=== PATIENT | female | born 1945 | race Caucasian/White ===

== ENCOUNTER → 2016-12-04 | Outpatient (CLI) | payer OTHER | LOC: BHCLAF 15:00 | PROVIDERS: ATTEND Internal Medicine Cardiovascular Disease | DX: I48.0 Paroxysmal atrial fibrillation (principal); I10 Essential (primary) hypertension; E78.5 Hyperlipidemia, unspecified; Z95.5 Presence of coronary angioplasty implant and graft | CPT/HCPCS: 93005-PO ==

== ENCOUNTER 2016-12-30 11:37 | Emergency (ER) | payer OTHER ==
[2016-12-30 11:46] VITALS: RESP 16
--- NOTE | 2016-12-30 12:14 | EDPHY ---
HPI/HX/ROS/PE/MDM Narrative: CHIEF COMPLAINT: Nausea, weakness HPI: The patient is a 71 y/o female complaining of weakness and malaise onset this morning arriving at the referral of her representative government relations for evaluation. She has been dealing with several weeks of diarrhea that stopped four days ago. She describes some black "smaller than a marble-sized" pieces of stool in her diarrhea during that time period that has also resolved. She was active yesterday and felt normal. This morning she woke feeling dizzy, nauseated, and diaphoretic. She denies any vomiting over the last week, fever, or acute pain. She notes she has been taking Aleve for arthritis pain. She has no history of prior GI bleeds. REVIEW OF SYSTEMS: Aside from elements discussed in the HPI, a comprehensive 10-point review of systems was reviewed and is negative. PMH: Chronic right pelvic pain, arthritis, CAD, left circumflex stent, hypertension, hyperlipidemia, paroxysmal atrial fibrillation, AV brain malformation, GI issues, gallbladder issues, ulcer, cervical fusion, Prior medical records reviewed including admission 03/13/14 for cardiac stent and ED note 08/26/14 for tongue bleeding. SOCIAL HISTORY: Family member at bedside. Retired. Lives in [place]. GI: Dr. Seaman PHYSICAL EXAM: General:Patient is alert, in no acute distress. ENT:Eyes are normal to inspection. ENT inspection normal. Neck: Normal inspection. Full range of motion. Respiratory:No respiratory distress. Breath sounds normal bilaterally. Cardiovascular: Regular rate and rhythm. Strong peripheral pulses. Normal cap refill. Abdomen:The abdomen is nontender to palpation. There are no peritoneal signs. There are normal bowel sounds. Back: Normal to inspection. No tenderness to palpation. Skin: Normal color. No rash. Warm and dry. Extremities: Normal appearance. Full range of motion. Neuro: Oriented x3. Normal motor function. Normal sensory function. ED Course: IV established. Labs drawn. UA and stool studies ordered. Patient placed on freight sorter. 4mg IV Zofran and 1L IV NS administered for symptom management. The 12 lead EKG was interpreted by myself. Sinus mechanism. See hard copy and/ or "tracemaster" electronic copy for interpretation. Abdomen CT is negative. Discussed imaging results with the patient. She will be discharged home in good condition with standard follow up instructions and a script for Zofran to use as needed for nausea. Return precautions given. She agrees with follow up instructions. MDM: This patient presents with generalied weakness and report of possible small chunks of black material in her stool. Her abdomen is benign. Her Hct is normal. Her vitals are normal. Her CTAP is normal, so I think serious GI bleed , bowel obstruction, bowel perforation, sepsis are all unlikely. I discussed findings with her and she would like to go home. We discussed strict return precautions. - Data Points Imaging: Discussed imaging studies w/ produce weigher Radiologist, I viewed and interpreted images myself Laboratory Results: Laboratory Results 12/30/16 12:23 12/30/16 12:23 12/30/16 12/30/16 12/30/16 13:30 12:23 12:23 WBC RBC Hgb Hct MCV MCH MCHC RDW Plt Count MPV Neut % (Auto) Lymph % (Auto) Da[place]hin % (Auto) Eos % (Auto) Baso % (Auto) Nucleat RBC Rel Count Absolute Neuts (auto) Absolute Lymphs (auto) Absolute Monos (auto) Absolute Eos (auto) Absolute Basos (auto) Absolute Nucleated RBC Immature Gran % Immature Gran # PT 12.7 SEC SEC (12.0-15.0) INR 0.96 (0.83-1.16) APTT 44.1 SEC H SEC (23.0-38.0) Sodium 140 mEq/L mEq/L (134-144) Potassium 4.5 mEq/L mEq/L (3.5-5.2) Chloride 107 mEq/L mEq/L (97-110) Carbon Dioxide 22 mEq/l mEq/l (22-31) Anion Gap 11 mEq/L mEq/L (8-16) BUN 18 mg/dL mg/dL (7-23) Creatinine 0.9 mg/dL mg/dL (0.6-1.0) Estimated GFR > 60 Glucose 89 mg/dL mg/dL (70-100) Calcium 8.8 mg/dL mg/dL (8.5-10.4) Total Bilirubin 0.4 mg/dL mg/dL (0.1-1.4) Conjugated Bilirubin 0.3 mg/dL mg/dL (0.0-0.5) Unconjugated Bilirubin 0.1 mg/dL mg/dL (0.0-1.1) AST 15 IU/L IU/L (14-46) ALT 25 IU/L IU/L (9-52) Alkaline Phosphatase 75 IU/L IU/L (38-126) Total Protein 6.6 g/dL g/dL (6.3-8.2) Albumin 3.8 g/dL g/dL (3.5-5.0) Urine Color PALE YELLOW Urine Appearance CLEAR Urine pH 5.0 (5.0-7.5) Ur Specific Armstrong 1.005 (1.002-1.030) Urine Protein NEGATIVE (NEGATIVE) Urine Ketones NEGATIVE (NEGATIVE) Urine Blood 1+ H (NEGATIVE) Urine Nitrate NEGATIVE (NEGATIVE) Urine Bilirubin NEGATIVE (NEGATIVE) Urine Urobilinogen NEGATIVE EU EU (0.2-1.0) Ur Leukocyte Esterase NEGATIVE (NEGATIVE) Urine RBC NONE SEEN /hpf /hpf (0-3) Urine WBC NONE SEEN /hpf /hpf (0-3) Ur Epithelial Cells NONE SEEN /lpf /lpf (NONE-1+) Urine Bacteria TRACE /hpf H /hpf (NONE SEEN) Urine Mucus TRACE /lpf /lpf (NONE-1+) Urine Glucose NEGATIVE (NEGATIVE) 12/30/16 12:23 WBC 7.50 10^3/uL 10^3/uL (3.80-9.50) RBC 4.26 10^6/uL 10^6/uL (4.18-5.33) Hgb 14.2 g/dL g/dL (12.6-16.3) Hct 41.5 % % (38.0-47.0) MCV 97.4 fL fL (81.5-99.8) MCH 33.3 pg pg (27.9-34.1) MCHC 34.2 g/dL g/dL (32.4-36.7) RDW 13.0 % % (11.5-15.2) Plt Count 273 10^3/uL 10^3/uL (150-400) MPV 9.7 fL fL (8.7-11.7) Neut % (Auto) 70.4 % % (39.3-74.2) Lymph % (Auto) 17.3 % % (15.0-45.0) Dauphin % (Auto) 6.5 % % (4.5-13.0) Eos % (Auto) 4.5 % % (0.6-7.6) Baso % (Auto) 0.9 % % (0.3-1.7) Nucleat RBC Rel Count 0.0 % % (0.0-0.2) Absolute Neuts (auto) 5.27 10^3/uL 10^3/uL (1.70-6.50) Absolute Lymphs (auto) 1.30 10^3/uL 10^3/uL (1.00-3.00) Absolute Monos (auto) 0.49 10^3/uL 10^3/uL (0.30-0.80) Absolute Eos (auto) 0.34 10^3/uL 10^3/uL (0.03-0.40) Absolute Basos (auto) 0.07 10^3/uL 10^3/uL (0.02-0.10) Absolute Nucleated RBC 0.00 10^3/uL 10^3/uL (0-0.01) Immature Gran % 0.4 % % (0.0-1.1) Immature Gran # 0.03 10^3/uL 10^3/uL (0.00-0.10) PT INR APTT Sodium Potassium Chloride Carbon Dioxide Anion Gap BUN Creatinine Estimated GFR Glucose Calcium Total Bilirubin Conjugated Bilirubin Unconjugated Bilirubin AST ALT Alkaline Phosphatase Total Protein Albumin Urine Color Urine Appearance Urine pH Ur Specific Armstrong Urine Protein Urine Ketones Urine Blood Urine Nitrate Urine Bilirubin Urine Urobilinogen Ur Leukocyte Esterase Urine RBC Urine WBC Ur Epithelial Cells Urine Bacteria Urine Mucus Urine Glucose Medications Given: Discontinued Medications Sodium Chloride (Ns) 1,000 mls @ 0 mls/hr IV ONCE ONE PRN Reason: Wide Open Stop: 12/30/16 12:27 Last Admin: 12/30/16 12:30 Dose: 1,000 mls Ondansetron HCl (Zofran) 4 mg IVP EDNOW ONE Stop: 12/30/16 12:27 Last Admin: 12/30/16 12:30 Dose: 4 mg General Time Seen by Provider: 12/30/16 11:53 Initial Vital Signs: Initial Vital Signs Temperature (C) 37.6 C 12/30/16 11:43 Heart Rate 73 12/30/16 11:43 Respiratory Rate 16 12/30/16 11:43 Blood Pressure 140/88 H 12/30/16 11:43 O2 Sat (%) 95 12/30/16 11:43 O2 Delivery Mode Room Air Allergies/Adverse Reactions: diphenhydramine HCl [From Benadryl] Allergy (Severe, Verified 12/30/16 11:40) SWOLLEN TONGUE/DRUG FEVER/TROUBLE SWOLLOWING Penicillins Allergy (Severe, Verified 12/30/16 11:40) SWOLLEN TONGUE/DRUG FEVER/TROUBLE SWOLLOWING lidocaine Allergy (Intermediate, Verified 12/30/16 11:40) Hives Tvyctle-Qnm-Bwn Reductase Inhibitor Allergy (Intermediate, Verified 12/30/16 11: 40) SWOLLEN JOINTS pentazocine lactate [From Talwin] Allergy (Unknown, Verified 12/30/16 11:40) Other-Enter Comments Home Medications: Medication Instructions Recorded Calcium Carb W/Vit D [Calcium Carb 500 mg PO TIDMEAL 03/13/14 W/Vit D 500/200 (*)] Multivitamins [Multivitamin (*)] 1 each PO DAILY 03/13/14 Pantoprazole Sodium [Protonix 40mg 40 mg PO HS 03/13/14 (*)] Promethazine HCl [Phenergan 25mg 25 mg PO DAILY PRN 03/13/14 (*)] oxyCODONE IR [Oxycodone Ir (*)] 30 mg PO BID PRN 03/13/14 Aspirin [Aspirin 81mg (*)] 81 mg PO DAILY #30 tab 03/14/14 Albuterol [Ventolin Hfa Inhaler] 2 puffs IH TID@05,12,18 PRN 10/17/15 Docusate Sodium [Colace 100 MG (*)] 100 mg PO BID 10/17/15 Doxepin HCl [SINEquan 10 MG (*)] 10 mg PO QID 10/17/15 Fluticasone/Salmeter 250/50Mcg 1 puffs IH BID 10/17/15 [Advair 250/50 (*)] LORAZEPAM 1 mg PO TID 10/17/15 Naloxegol Oxalate [Movantik] 25 mg PO DAILY@08 10/17/15 Ondansetron Odt [Zofran Odt 4 mg 4 mg PO Q6H PRN 10/17/15 (*)] oxyCODONE CR [Oxycontin] 20 mg PO TID@0530,1230,19 10/17/15 Linaclotide [Linzess] 290 mcg PO BID@,10/19/15 Zydone 15mg [Hydrocodone] 30 mg PO DAILY PRN 10/20/15 Lisinopril 12/30/16 Metoprolol Succinate 12/30/16 Ondansetron Odt [Zofran Odt] 4 mg PO Q4PRN PRN #10 tab 12/30/16 Departure - Departure Disposition: Home, Routine, Self-Care Clinical Impression: Weakness, Nausea Condition: Good Instructions: Acute Nausea and Vomiting (ED), Weakness (ED) Additional Instructions: 1. Take Zofran as prescribed for nausea. 2. Follow up with your primary care provider for unimproved symptoms over the next few days. 3. Return to the ED for chest pain, shortness of breath, blood in your vomit or stool, or other worsening of condition. Referrals: Maria C Marsh MD [Primary Care Provider] - As per Instructions Prescriptions: Ondansetron Odt [Zofran Odt] 4 mg PO Q4PRN PRN #10 tab PRN Reason: Nausea Report Scribed for: Jimy Caban Report Scribed by: Suzy Crenshaw Date of Report: 12/30/16 Time of Report: 12:14 Physician Review and Approval Statement: Portions of this note were transcribed by an ED scribe. I personally performed the history, physical exam, and medical decision making; and confirm the accuracy of the information in the transcribed note.
[2016-12-30] MEDS ORDERED: ONDANSETRON 4 MG/2 ML VIAL IVP ONE (12:26)
[2016-12-30] MEDS ORDERED: NS 1,000 ML IV ONE (12:26)
[2016-12-30 12:37] VITALS: TEMP 98.4
[2016-12-30 12:39] LABS: % IMMATURE GRANULYOCYTES 0.4 % (0.0-1.1); ABSOLUTE IMMATURE GRANULOCYTES 0.03 10^3/uL (0.00-0.10); ADD DIFF? NO; ADD MORPH? NO; ADD SCAN? NO; ATYPICAL LYMPHOCYTE FLAG 20 (0-99); FRAGMENT RBC FLAG 0 (0-99); HEMATOCRIT 41.5 % (38.0-47.0); HEMOGLOBIN 14.2 g/dL (12.6-16.3); LEFT SHIFT FLG 0 (0-99); LIPEMIA HEMOLYSIS FLAG 90 (0-99); MEAN CELL HEMOGLOBIN 33.3 pg (27.9-34.1); MEAN CELL HEMOGLOBIN CONCENTR. 34.2 g/dL (32.4-36.7); MEAN CELL VOLUME 97.4 fL (81.5-99.8); MEAN PLATELET VOLUME 9.7 fL (8.7-11.7); PLATELET CLUMPS FLAG 0 (0-99); PLATELET COUNT 273 10^3/uL (150-400); RED BLOOD CELL COUNT 4.26 10^6/uL (4.18-5.33)
[2016-12-30 12:48] LABS: INR 0.96 (0.83-1.16); PROTIME(PATIENT) 12.7 SEC (12.0-15.0)
[2016-12-30 12:49] LABS: APTT 44.1 SEC (23.0-38.0)
[2016-12-30 13:01] LABS: ALANINE AMINOTRANSFERASE 25 IU/L (9-52); ALBUMIN 3.8 g/dL (3.5-5.0); ALKALINE PHOSPHATASE 75 IU/L (38-126); ANION GAP 11 mEq/L (8-16); ASPARTATE AMINOTRANSFERASE 15 IU/L (14-46); BILIRUBIN,TOTAL 0.4 mg/dL (0.1-1.4); BILIRUBIN-CONJUGATED 0.3 mg/dL (0.0-0.5); BILIRUBIN-UNCONJUGATED 0.1 mg/dL (0.0-1.1); CALCIUM 8.8 mg/dL (8.5-10.4); CARBON DIOXIDE 22 mEq/l (22-31); CHLORIDE 107 mEq/L (97-110); CREATININE 0.9 mg/dL (0.6-1.0); GLOMERULAR FILTRATION RATE > 60; GLUCOSE 89 mg/dL (70-100); POTASSIUM 4.5 mEq/L (3.5-5.2); SODIUM 140 mEq/L (134-144); TOTAL PROTEIN 6.6 g/dL (6.3-8.2)
[2016-12-30 13:51] LABS: COLOR PALE YELLOW; LEUKOCYTE ESTERASE,URINE NEGATIVE (NEGATIVE); NITRITE,URINE NEGATIVE (NEGATIVE)
[2016-12-30] MEDS ORDERED: IOPAMIDOL (ISOVUE-300) 100 ML BTL ONE (14:00)
[2016-12-30 14:02] LABS: BACTERIA TRACE /hpf (NONE SEEN); MUCUS TRACE /lpf (NONE-1+)
[2016-12-30 14:04] LABS: RBC,URINE NONE SEEN /hpf (0-3); WBC,URINE NONE SEEN /hpf (0-3)
--- NOTE | 2016-12-30 14:12 | CPEKG ---
Heart Rate: 66 RR Interval: 909 P-R Interval: 192 QRSD Interval: 74 QT Interval: 384 QTC Interval: 403 P Water[place]: 68 QRS [place]: 15 T Wave [place]: 53 EKG Severity - OTHERWISE NORMAL ECG - EKG Impression: SINUS RHYTHM EKG Impression: LOW VOLTAGE IN FRONTAL LEADS Electronically Signed By: Tolu Coley 01-Jan-2017 07:29:24
[2016-12-30 15:16] VITALS: BP 129/98; PULSE 75; O2SAT 95
== END 2016-12-30 15:16 | disposition home or self-care (01) ==
DX: R11.0 Nausea (principal); R53.1 Weakness; I25.10 Atherosclerotic heart disease of native coronary artery without angina pectoris; I10 Essential (primary) hypertension; R79.1 Abnormal coagulation profile; Z79.82 Long term (current) use of aspirin
CPT/HCPCS: 74177; 93005; 96361; 96374; 99285; J2405; Q9967

== ENCOUNTER → 2017-02-12 | Outpatient (CLI) | payer OTHER | LOC: CIMAGING 13:07 | PROVIDERS: ATTEND Internal Medicine Gastroenterology | DX: R10.84 Generalized abdominal pain (principal) | CPT/HCPCS: 74020-PO; 80053-PO; 83690-PO ==

== ENCOUNTER → 2017-02-18 | Outpatient (CLI) | payer OTHER | LOC: CIMAGING 15:03 | PROVIDERS: ATTEND Internal Medicine Gastroenterology | DX: R10.84 Generalized abdominal pain (principal) | CPT/HCPCS: 74020-PO ==

== ENCOUNTER → 2017-02-26 | Outpatient (CLI) | payer OTHER | LOC: CIMAGING 16:24 | PROVIDERS: ATTEND Physician Assistant | DX: K59.00 Constipation, unspecified (principal) | CPT/HCPCS: 74000-PO ==

== ENCOUNTER → 2017-02-27 | Outpatient (CLI) | payer OTHER | LOC: CIMAGING 15:23 | PROVIDERS: ATTEND Physician Assistant | DX: K59.00 Constipation, unspecified (principal) | CPT/HCPCS: 74020-PO ==

== ENCOUNTER → 2017-03-06 | Outpatient (CLI) | payer OTHER | LOC: CIMAGING 14:00 | PROVIDERS: ATTEND Physician Assistant | DX: K59.00 Constipation, unspecified (principal) | CPT/HCPCS: 74020-PO ==

== ENCOUNTER → 2017-12-08 | Outpatient (CLI) | payer OTHER | DX: I48.91 Unspecified atrial fibrillation (principal) ==

== ENCOUNTER 2018-05-22 08:47 | Emergency (ER) | payer OTHER ==
[2018-05-22 09:02] VITALS: BP 111/80
--- NOTE | 2018-05-22 09:21 | EDPHY ---
H & P Stated Complaint: right ear pain Time Seen by Provider: 05/22/18 08:58 HPI/ROS: Chief Complaint: Ear pain HPI: 73-year-old woman's been having pain in her right ear for the last 2 weeks. She has had some dental problems in pain in her temporomandibular joint. She has seen a dentist and has follow-up on Thursday. She is having persistent pain. She did notice a drop of blood in her ear this morning and is wondering if she might have an ear infection which is contributing to her pain. No other discharge. She does use Q-tips. No fevers or chills. No hearing loss. No nausea or vomiting. She has been taking Tylenol with some relief. ROS: 10 systems were reviewed and were negative except those elements noted in the HPI Social History: No smoking, no alcohol, no recreational drug use Family History: non-contributory Physical Exam: Gen: Awake, Alert, No Distress HEENT: Ears: She has a cerumen impaction right ear, this was cleared by irrigation. The fatigued he EM is normal. No erythema. No bulging. Small abrasion to the ear canal prior to irrigation noted. Nose: no rhinorrhea Eyes: PERRLA, EOMI Mouth: Moist mucosa normal dentition, there is tenderness at the right temporomandibular joint. No lymphadenopathy. No swelling. Skin: no rash Neuro: CN II-XII intact, Sensation grossly intact, Strength 5/5 in bilateral upper and lower extremities - Personal History Current Tetanus/Diphtheria Vaccine: Yes Current Tetanus Diphtheria and Acellular Pertussis (TDAP): Yes Tetanus Vaccine Date: 2003 - Medical/Surgical History Hx Asthma: Yes Hx Chronic Respiratory Disease: No Hx Diabetes: No Hx Cardiac Disease: Yes Hx Renal Disease: No Hx Cirrhosis: No Hx Alcoholism: No Hx HIV/AIDS: No Hx Splenectomy or Spleen Trauma: No Other PMH: HTN, AV Malformation to brain, Past hx of treated TB, R Foot numbness , bipolar, Gastric Lymphoma, R Hip and L Knee surgeries, ASTHMA, GALLBLADDER PROBLEMS,BACKED UP BOWEL, ULCER, STOMACH NOT EMPTYING (TAKES REGLAN), MALT LYMPHOMA.CERVICAL FUSION/CHRONIC PAIN IN R LEG DUE TO NERVE DAMAGE. RADIATION AMAGE TO INTESTINE. AFIB 06/2013. NERVE ISSUES. FX NECK, DAMAGED GENITAL NERVE PROBLEM, CHRONIC PAIN,DEC 2012 BLEEDING ULCER. - Social History Smoking Status: Current some day smoker Constitutional: Initial Vital Signs Temperature (C) 36.8 C 05/22/18 08:56 Heart Rate 67 05/22/18 08:56 Respiratory Rate 18 05/22/18 08:56 Blood Pressure 111/80 05/22/18 08:56 O2 Sat (%) 96 05/22/18 08:56 Allergies/Adverse Reactions: diphenhydramine HCl [From Benadryl] Allergy (Severe, Verified 12/30/16 11:40) SWOLLEN TONGUE/DRUG FEVER/TROUBLE SWOLLOWING Penicillins Allergy (Severe, Verified 12/30/16 11:40) SWOLLEN TONGUE/DRUG FEVER/TROUBLE SWOLLOWING lidocaine Allergy (Intermediate, Verified 12/30/16 11:40) Hives Nyaovja-Qkf-Oge Reductase Inhibitor Allergy (Intermediate, Verified 12/30/16 11: 40) SWOLLEN JOINTS pentazocine lactate [From Talwin] Allergy (Unknown, Verified 12/30/16 11:40) Other-Enter Comments Home Medications: Medication Instructions Recorded Calcium Carb W/Vit D [Calcium Carb 500 mg PO TIDMEAL 03/13/14 W/Vit D 500/200 (*)] Multivitamins [Multivitamin (*)] 1 each PO DAILY 03/13/14 Pantoprazole Sodium [Protonix 40mg 40 mg PO HS 03/13/14 (*)] Promethazine HCl [Phenergan 25mg 25 mg PO DAILY PRN 03/13/14 (*)] oxyCODONE IR [Oxycodone Ir (*)] 30 mg PO BID PRN 03/13/14 Aspirin [Aspirin 81mg (*)] 81 mg PO DAILY #30 tab 03/14/14 Albuterol [Ventolin Hfa Inhaler] 2 puffs IH TID@05,12,18 PRN 10/17/15 Docusate Sodium [Colace 100 MG (*)] 100 mg PO BID 10/17/15 Doxepin HCl [SINEquan 10 MG (*)] 10 mg PO QID 10/17/15 Fluticasone/Salmeter 250/50Mcg 1 puffs IH BID 10/17/15 [Advair 250/50 (*)] LORAZEPAM 1 mg PO TID 10/17/15 Naloxegol Oxalate [Movantik] 25 mg PO DAILY@08 10/17/15 Ondansetron Odt [Zofran Odt 4 mg 4 mg PO Q6H PRN 10/17/15 (*)] oxyCODONE CR [Oxycontin] 20 mg PO TID@0530,1230,19 10/17/15 Linaclotide [Linzess] 290 mcg PO BID@09,21 10/19/15 Zydone 15mg [Hydrocodone] 30 mg PO DAILY PRN 10/20/15 Lisinopril 12/30/16 Metoprolol Succinate 12/30/16 Ondansetron Odt [Zofran Odt] 4 mg PO Q4PRN PRN #10 tab 12/30/16 Medical Decision Making Procedures: Procedure: Cerumen removal. After a physical exam was performed cerumen needed to be removed from the patient's ear canal. The indication of the procedure was cerumen impaction and inability to complete the ear exam. The procedure was performed with water irrigation and curette. The patient tolerated the procedure well. The procedure was performed by myself. ED Course/Re-evaluation: 73-year-old woman presenting with right ear pain. Ear appears normal. She did have a cerumen impaction this is been cleared. She does have tenderness of the right temporomandibular joint. I think her symptoms are secondary to jaw pain. She has an appoint with a dentist on Thursday. No evidence of infection at this time. Departure - Departure Disposition: Home, Routine, Self-Care Clinical Impression: Temporomandibular joint (TMJ) pain Condition: Good Instructions: Temporomandibular Disorder (ED) Additional Instructions: Follow up with her dentist as scheduled on Thursday. You may continue taking acetaminophen as needed for pain. Referrals: Suzette Martínez MD [Primary Care Provider] - As per Instructions
== END 2018-05-22 09:32 | disposition home or self-care (01) ==
LOC: CED 08:47
PROC: 09C3XZZ Extirpation of Matter from Right External Auditory Canal, External Approach (ICD-10-PCS; principal; 2018-05-22)
DX: H61.21 Impacted cerumen, right ear (principal); R68.84 Jaw pain; I10 Essential (primary) hypertension; F31.9 Bipolar disorder, unspecified
CPT/HCPCS: 99283-ER

== ENCOUNTER → 2018-05-28 | Outpatient (CLI) | payer OTHER | LOC: CIMAGING 12:58 | PROVIDERS: ATTEND Internal Medicine | DX: Z09 Encounter for follow-up examination after completed treatment for conditions other than malignant neoplasm (principal) | CPT/HCPCS: 71250-PO ==

== ENCOUNTER → 2018-07-22 | Outpatient (CLI) | payer OTHER | LOC: BHFA 14:30 | PROVIDERS: ATTEND Internal Medicine Cardiovascular Disease | DX: I48.0 Paroxysmal atrial fibrillation (principal) ==